=== PATIENT | male | born 1985 | race Caucasian/White ===

== ENCOUNTER 2016-12-08 10:21 | Observation (INO) | payer SELFPAY ==
[2016-12-08] MEDS ORDERED: MORPHINE SULFATE 2 MG/ML DISP.SYRIN IV ONE (11:00)
[2016-12-08] MEDS ORDERED: RINGERS SOLUTION,LACTATED 1,000 ML IV ONE ×3 (11:00→12:47)
[2016-12-08] MEDS ORDERED: MORPHINE SULFATE 4 MG/ML SYRG IV ONE (11:04)
[2016-12-08] MEDS ORDERED: MORPHINE SULFATE 4 MG/ML SYRG ONE (11:09)
--- NOTE | 2016-12-08 11:16 | ERNOTE ---
Abdominal HPI - Narrative Date of Service: 12/08/16 - General Chief Complaint: Abdominal Pain Time Seen by Provider: 12/08/16 10:48 Source: patient, RN/MD, RN notes reviewed, past records Exam Limitations: no limitations - Immun/Allergies/Home Medications Immunizatons: IMMUNIZATION HX Immunizations Up to Date Yes History of Influenza Vaccine No Hx Pneumococcal Vaccination No Allergies/Adverse Reactions: Allergies Penicillins Allergy (Unknown, Verified 12/08/16 10:35) Home Medications: HOME MEDICATIONS DULoxetine HCL [Cymbalta] 20 mg PO DAILY 12/08/16 [Last Taken Unknown] - History of Present Illness Narrative: Elroy is a 31 year old male transferred here from [facility] for acute appendicitis due to there not being a surgeon at that facility. He began having abdominal pain last evening at 2300. It gradually worsening throughout the night and he presented to the ED in [place] at approximately [address]. [address] of the abdomen and pelvis showed acute appendicitis without complications. He was given Morphine for pain along with Zofran for nausea and a dose of Protonix IV. He also received a GI cocktail and an IM dose of Bentyl. He currently rates his pain at 6/10 in the right lower quadrant and denies nausea. He reports that his last oral intake was approximately 12 hours ago. He denies any recent illnesses or prior GI pathology. Date (Duration): 12/07/16 Time (Timing): 23:00 Timing: constant Quality: severe, aching, other - colicky Activities at Onset: none Modifying Factors - (Improves): Present: other - medication Modifying Factors - (Worsens): Present: movement, other - palpation Associated Symptoms: Absent: headache, back pain, chest pain, neck pain, diaphoresis, diarrhea-gross blood, diarrhea-mucous, fever/chills, nausea, vomiting, loss of appetite, shortness of breath, syncope, weakness Prior Abdominal Problems: Present: none Review of Systems - Review of Systems Constitutional: Absent: recent illness, fever, chills, fatigue, malaise EYE: Present: no symptoms reported ENT: Absent: nose congestion, sore throat Respiratory: Absent: shortness of breath, cough Cardiology: Absent: chest pain, syncope Gastrointestinal/Abdominal: Present: See HPI Genitourinary: Absent: frequency, dysuria, hematuria Musculoskeletal: Present: See HPI Skin: Absent: rash, lesions Neurological: Absent: headache, dizziness/light-headedness Endocrine: Present: no symptoms reported Hematologic/Lymphatic: Absent: easy bruising, easy bleeding Psych: Present: no symptoms reported - Patient's Past Medical History Patient History - Medical: Anxiety Patient History - Cardiac/Respiratory: Other - murmur in childhood Patient History - Cancer: No Hx of Cancer Patient History - Surgical Procedures: Other - Left shoulder x2 - Social History Living Situations: alone Smoking Status: Never smoker Do you dip or chew tobacco: Yes Alcohol Use: occasionally Drug Use: none - Immunizations Hx Pneumococcal Vaccination: More Information Required to Determine History of Influenza Vaccine: More Information Required to Determine Physical Exam - Physical Exam General Appearance: Present: wd/wn, alert, no apparent distress, other - clean, well groomed Eye Exam: Normal inspection: bilateral Ears, Nose, Throat: Present: hearing grossly normal Neck: Present: normal inspection, nontender, supple Respiratory: Present: no respiratory distress, normal breath sounds, no accessory muscle use, lungs clear Cardiovascular/Chest: Present: regular rate, rhythm, no murmur, normal peripheral pulses Gastrointestinal/Abdominal: Present: normal bowel sounds, soft, tenderness - RLQ - moderate, distended - mild, rebound. Absent: mass Back Exam: Present: normal inspection, no CVA tenderness Neurological Exam: Present: alert, oriented, normal mood/affect, no motor/ sensory deficits Skin Exam: Present: normal color, warm/dry Lymphatic Exam: Present: no adenopathy ED Progress - Results and Orders Patient's Lab Results:: I have reviewed the patient's lab results. - CMP normal except ALT of 65, Normal amylase and lipase, small amount of ketones present on UA, negative urine drug screen, WBC 15.7 - Vital Signs Patient's Vital Signs:: I have reviewed the patient's vital signs. Vital Signs: Vital Signs 12/08/16 10:27 Temperature 35.9 C L Pulse Rate 66 Respiratory 16 Rate Blood Pressure 120/79 O2 Sat by Pulse 96 Oximetry - CT/Ultrasound CT/Ultrasound Narrative: CT abdomen/pelvis with contrast from [facility]: Unremarkable aside from acute appendicitis with an appendicolith as well as minimal appendiceal wall hyperemia and periappendiceal fatty infiltration. No drainable fluid collection identified. - Progress/Reassessment Chief Complaint: Abdominal Pain Progress:: Unchanged Progress Note-Subjective: Additional dose of Morphine ordered for pain shortly after arrival. Denies any nausea. Plan - Plan Plan: Dr. Saunders and Javy Mcnair CONTENT ANALYST here to see patient and obtain consents. To go to OR for appendectomy. IV Mefoxin 2 GM ordered. Departure - Departure Clinical Impression: Acute appendicitis, uncomplicated Disposition: [facility] Condition: Good
--- NOTE | 2016-12-08 11:24 | HP ---
Chief Complaint - Chief Complaint Date of Service: 12/08/16 Time of Service: 11:19 Chief Complaint: acute appendicitis History of Present Illness: Started having generalized abdominal pain last night, pain continued and localized to RLQ. Presented to ER at [facility] where he was found to have RLQ tenderness and CT scan evidence of acute appendicitis. There is no surgeon at that facility so he was transferred here for treatment. - Patient's Past Medical History Patient History - Medical: Anxiety Patient History - Cardiac/Respiratory: Other - murmur in childhood Patient History - Cancer: No Hx of Cancer Patient History - Surgical Procedures: Other - Left shoulder x2 - Social History Living Situations: alone Smoking Status: Never smoker Do you dip or chew tobacco: Yes Alcohol Use: occasionally Drug Use: none Review Of Systems (GEN) - Review of Systems Generalized/Overall Review: Present: Malaise. Absent: Chills, Fever EENTM: Present: No Symptoms Reported Respiratory: Present: No Symptoms Reported Cardiac: Present: No Symptoms Reported Abdominal: Present: Abdominal Pain. Absent: Nausea, Vomiting Genitourinary: Present: No Symptoms Reported Musculoskeletal: Present: No Symptoms Reported Neurological: Present: No Symptoms Reported Skin: Present: No Symptoms Reported Immunizations: IMMUNIZATION HX Immunizations Up to Date Yes History of Influenza Vaccine More Information Required Hx Pneumococcal Vaccination More Information Required Allergies/Adverse Reactions: Allergies Allergy/AdvReac Type Severity Reaction Status Date / Time Penicillins Allergy Unknown Verified 12/08/16 10:35 Home Medications: HOME MEDICATIONS DULoxetine HCL [Cymbalta] 20 mg PO DAILY 12/08/16 [Last Taken Unknown] Exam - Exam Vital Signs: Vital Signs - Last Taken Temp 35.9 C L 12/08/16 10:27 Pulse 66 12/08/16 10:27 Resp 16 12/08/16 10:27 BP 120/79 12/08/16 10:27 Pulse Ox 96 12/08/16 10:27 Constitutional: Present: Alert, Oriented x3, Cooperative, Well developed, Well nourished ENT Exam: Present: normal ENT inspection Eye Exam: bilateral eye: normal inspection Neck: Present: full range of motion, supple Back Exam: Present: normal inspection Respiratory: Present: lungs clear Cardiovascular/Chest: Present: regular rate, rhythm, no murmur Abdomen: Present: tender, guarding, rebound tenderness /Rectal: Present: Exam deferred Extremity: Present: normal range of motion, normal inspection, no pedal edema, no calf tenderness Neurologic: Present: harpsichord maker II-XII nml as tested, normal cerebellar test, no motor/ sensory deficits Appearance: Present: appropriate appearance, appropriate insight, neat Eye contact: Present: cooperative, good eye contact, normal speech Thoughts: Present: normal thought pattern Diagnostic Studies: CT scan shows acute uncomplicated appendicitis Assessment/Plan - Assessment/Plan (1) Acute appendicitis Assessment: discussed acute appendicitis and treatment by appendectomy including risks and expected hospital course. Questions answered and informed consent for appendectomy obtained. SCD's; chlorhexidine wipes, IV Mefoxin pre-op (has had no problem with antibiotics and the allergy to PCN was on testing as an ) Problem: Acute
[2016-12-08] MEDS ORDERED: CEFOXITIN SODIUM 2 GM in DEXTROSE 5 % IN WATER 100 ML IV PRN ×2 (11:27)
[2016-12-08] MEDS ORDERED: MUPIROCIN 22 APPL TUBE TP ONE (12:18)
[2016-12-08] MEDS ORDERED: BUPIVACAINE HCL/EPINEPHRINE 50 ML VIAL IJ ONE (12:19)
[2016-12-08] MEDS ORDERED: ONDANSETRON HCL/PF 2 MG/ML VIAL IV PRN (13:01)
[2016-12-08] MEDS ORDERED: RINGERS SOLUTION,LACTATED 1,000 ML IV PRN (13:01)
[2016-12-08] MEDS ORDERED: oxyCODONE HCL/ACETAMINOPHEN 1 TAB TABLET PO PRN ×2 (13:01→18:32)
[2016-12-08] MEDS ORDERED: MORPHINE SULFATE 2 MG/ML DISP.SYRIN IV PRN (13:01)
--- NOTE | 2016-12-08 13:35 | OR ---
Operative Report - Dictated Report Narrative: OPERATIVE REPORT DATE OF OPERATION: 12/08/2016 PREOPERATIVE DIAGNOSIS: Acute appendicitis POSTOPERATIVE DIAGNOSIS: Acute uncomplicated appendicitis OPERATION: Laparoscopic appendectomy SURGEON: Leticia Saunders MD ANESTHESIA: Gen. endotracheal Javy Mcnair CRNA INDICATIONS FOR PROCEDURE: The patient is a 31-year-old male who began having abdominal pain last night. The pain intensified and migrated to the right lower quadrant. He presented to the ER at [facility] where he was found to have direct and rebound tenderness and CT scan evidence of acute appendicitis. There is no surgeon available at that facility, and the patient was transferred here for treatment. FINDINGS: Acute uncomplicated appendicitis NARRATIVE OF PROCEDURE: The patient was identified in the holding area, and prior to the administration of anesthetic a multidisciplinary timeout was observed. The patient was placed supine, SCDs were applied, and 2 g of intravenous Mefoxin administered. Gen. endotracheal anesthetic was administered. The patient's abdomen was prepped with Betadine solution and a generous operating field isolated with 4 sterile towels. The remainder the patient was covered with a sterile disposable drape. A transverse infraumbilical skin incision was made. Dissection was carried along the umbilical stalk until the fascia of the linea alba was encountered. This was incised. The peritoneum was then elevated and incised to allow entry into the abdomen under direct vision. A Ott cannula was placed and the abdomen insufflated with CO2. The laparoscopic camera was introduced and the abdomen briefly explored. Those portions of the liver, stomach, small bowel, and colon visualized appeared normal. The appendix was not immediately visible. Under direct vision 2 additional working ports were inserted through separate skin incisions, one suprapubically and one in the left lower quadrant. The apex of the cecum was grasped and retracted. The tip of an acutely inflamed appendix was visible. The appendix was gradually elevated and using electrocautery the lateral peritoneal attachments were developed to expose the entire appendix and mesoappendix. The base of the appendix and mesoappendix were then transected with a single application of a laparoscopic FIONA stapling device. The the stump of the appendix was seen to be gas and liquid tight and hemostatic. The mesoappendix appeared hemostatic. The appendix was placed in an Endobag and parked in the right lower quadrant. The right lower quadrant and pelvis were suctioned clean. The smaller working ports were then withdrawn under direct vision to ensure entry site hemostasis. The appendix was withdrawn in conjunction with the Ott cannula. The pneumoperitoneum was allowed to escape, and after receiving a correct sponge needle and instrument count attention was turned to closing the abdomen. The fascia and peritoneum were approximated with interrupted sutures of #1 Vicryl. Skin incisions were approximated with interrupted vertical mattress sutures of 4-0 nylon. The operative sites were washed and dried. Dressings of Bactroban ointment and large Band-Aids were applied to the small port sites. The umbilical incision was dressed with Bactroban ointment , 2 x 2, large Band-Aid and Medipore tape. The operative procedure was terminated at this point. The patient tolerated the anesthetic and procedure well without complication. There was no measurable blood loss. The appendix was submitted to pathology. 0.5% Marcaine with epinephrine was used for local anesthetic infiltration. The patient was transferred to the recovery room awake, extubated, and in stable condition. Reviewed and electronically signed
--- NOTE | 2016-12-08 18:23 | DS ---
(1) Acute appendicitis Problem: Acute Description of Stay: Underwent uneventful laparoscopic appendectomy for acute uncomplicated appendicitis. Chlorhexidine wipes pre-op. Pre and Post-op IV Mefoxin. VTE prophylaxis with SCD'S and early ambulation. VS remained normal. Presenting pain resolved and incisional discomfort controlled with PO Percocet. Tolerated PO intake, OOB independently, dressings remained dry. Procedures Performed: see notes below - laparoscopic appendectomy Discharge Disposition: Home self care Disposition: Home self-care Condition: Good Discharge Activity: Activity as tolerated, No Lifting Discharge Diet: General/regular food Problem Oriented Discharge Instructions to Patient/Family: Laparoscopic Appendectomy, Adult, Care After, [id number] Additional Patient Instructions (free text): To call office [phone] on Friday for f/u appointment 12/17/16 Prescriptions (Any new or edited meds): oxyCODONE HCL/ACETAMINOPHEN [Percocet 5 MG/325 MG] 2 tab PO Q4H PRN #20 tablet PRN Reason: Moderate Pain Complete Home Medications List: Complete Home Medication List: DULoxetine HCL [Cymbalta] 20 mg PO DAILY 12/08/16 oxyCODONE HCL/ACETAMINOPHEN [Percocet 5 MG/325 MG] 2 tab PO Q4H PRN #20 tablet 12/08/16
[2016-12-08] MEDS ORDERED: CEFOXITIN SODIUM 2 GM in DEXTROSE 5 % IN WATER 100 ML IV SCH ×2 (18:50)
[2016-12-08 19:33] VITALS: BP 114/68
[2016-12-09] MEDS ORDERED: DULoxetine HCL 20 MG CAPSULE.SA PO SCH (09:00)
== END 2016-12-08 19:00 | disposition home or self-care (01) ==
LOC: ER 10:21 → AMB 11:24 → MS 13:26
PROVIDERS: ADMIT Surgery; ATTEND Surgery
PROC: 0DTJ4ZZ Resection of Appendix, Percutaneous Endoscopic Approach (ICD-10-PCS; principal; 2016-12-08 12:12)
DX: K35.80 Unspecified acute appendicitis (principal)
CPT/HCPCS: 44970; 88304; 96374; 99284; G0378